=== PATIENT | male | born 2005 | race Caucasian/White ===

== ENCOUNTER 2023-11-28 06:11 | Emergency (ER) | payer SELFPAY ==
[2023-11-28] MEDS ORDERED: METOCLOPRAMIDE 10 MG/2mL INJ ONE (06:32)
[2023-11-28] MEDS ORDERED: ONDANSETRON 4 MG/2 ML VIAL ONE (06:32)
[2023-11-28] MEDS ORDERED: FAMOTIDINE 20 MG/2 ML VIAL IV ONE (06:33)
[2023-11-28] MEDS ORDERED: NA CHLORIDE 0.9% 1,000 ML ONE (06:33)
[2023-11-28 06:39] LABS: Absolute Basophils 0.1 K/uL (0-0.5); Absolute Eosinophils 0.1 K/uL (0-0.5); Absolute Lymphocytes (CBC) 2.4 K/uL (0.7-4.9); Absolute Monocytes 0.8 K/uL (0.1-1.3); Absolute Neutrophil 7.4 K/uL (1.8-8.0); Basophils % 0.9 % (0-1.3); Eosinophils % 0.5 % (0-4.4); Hematocrit 51.2 % (39.6-49.0); Hemoglobin 17.6 g/dL (13.6-17.9); Lymphocytes % 22.6 % (15.3-44.8); MCH 30.4 pg (27.0-35.0); MCHC 34.5 g/dL (32.0-36.0); MPV 9.4 fL (7.6-11.3); Monocytes % 7.2 % (3.3-12.3); Neutrophils % 68.8 % (41.7-73.7); Nucleated RBC Absolute Count 0.3 (0-0); Nucleated Red Blood Cells % 2.6 % (0-0); RBC Red Blood Cell Count 5.81 M/uL (4.33-5.43); Red Cell Distribution Width 13.6 % (12.1-15.2)
[2023-11-28 07:12] LABS: Albumin 4.2 g/dL (3.4-5.0); Albumin/Globulin Ratio 1.1 (1.1-1.8); Bilirubin Total 0.5 mg/dL (0.2-1.0); Protein, Total 8.2 g/dL (6.4-8.2)
[2023-11-28 07:44] LABS: Platelets 235 thou/uL (152-406)
--- NOTE | 2023-11-28 07:53 | RAD REPORT ---
EXAM DESCRIPTION: RAD - Chest Single View - 11/28/2023 7:42 am CLINICAL HISTORY: assess for pneumomediastinum COMPARISON: CHEST SINGLE VIEW dated 01/15/2014; CHEST PA AND LAT 2 VIEW dated 07/19/2012 FINDINGS: Lines: None. Lungs: No evidence of edema or pneumonia. Pleural: No significant pleural effusions or pneumothorax. Cardiac: The heart size is within normal limits. Mediastinum: Within normal limits. Bones: No acute fractures. Other: None IMPRESSION: No acute cardiopulmonary disease.
[2023-11-28 08:32] LABS: Blood Morphology Comment NOT SEEN (NOT SEEN); Platelet Estimate ADEQ; White Blood Cell Scan OK (OK)
--- NOTE | 2023-11-28 09:52 | ER ---
Nurse's Notes [facility] Name: Jaime Gates Age: 18 yrs Sex: Male : 2005 Arrival Date: 11/28/2023 Time: 06:11 Bed 16 Private MD: Diagnosis: Alcohol abuse with intoxication;Vomiting Presentation: 11/27 06:47 Chief complaint: Parent and/or Guardian states: drinking and vomiting blood. vc1 Coronavirus screen: At this time, the client does not indicate any symptoms associated with coronavirus-19. Ebola Screen: Patient negative for fever greater than or equal to 101.5 degrees Fahrenheit, and additional compatible Ebola Virus Disease symptoms Patient denies exposure to infectious person. Patient denies travel to an Ebola-affected area in the 21 days before illness onset. No symptoms or risks identified at this time. Initial Sepsis Screen: Does the patient meet any 2 criteria? No. Patient's initial sepsis screen is negative. Does the patient have a suspected source of infection? No. Patient's initial sepsis screen is negative. Risk Assessment: Do you want to hurt yourself or someone else? Patient reports no desire to harm self or others. Onset of symptoms was November 28, 2023. 06:47 Method Of Arrival: Ambulatory vc1 06:47 Acuity: EDELMIRA 4 vc1 07:44 Acuity: EDELMIRA 3 iw Triage Assessment: 06:49 General: Appears in no apparent distress. uncomfortable, Behavior is calm, cooperative, vc1 appropriate for age. Pain: Denies pain. Respiratory: Airway is patent Respiratory effort is even, unlabored, Respiratory pattern is regular, symmetrical, Breath sounds are clear bilaterally. GI: Abdomen is flat, non-distended, Reports nausea, vomiting. Historical: - Allergies: 06:47 No Known Allergies; vc1 - Home Meds: 06:47 None [Active]; vc1 - PMHx: 06:47 None; vc1 - PSHx: 06:47 None; vc1 - Immunization history:: Client reports having NOT received the Covid vaccine. - Infectious Disease History:: Denies. - Social history:: Smoking status: unknown. - Family history:: not pertinent. Screenin:48 [facility] ED Fall Risk Assessment (Adult) History of falling in the last 3 months, vc1 including since admission No falls in past 3 months (0 pts) Confusion or Disorientation No (0 pts) Intoxicated or Sedated No (0 pts) Impaired Gait No (0 pts) Mobility Assist Device Used No (0 pt) Altered Elimination No (0 pt) Score/Fall Risk Level 0 - 2 = Low Risk Oriented to surroundings, Maintained a safe environment, Educated pt \T\ family on fall prevention, incl call for assistance when getting out of bed. Abuse screen: Denies threats or abuse. Nutritional screening: No deficits noted. Tuberculosis screening: No symptoms or risk factors identified. Assessment: 07:35 General: Appears in no apparent distress. Behavior is calm, cooperative, drowsy. Pain: ph Denies pain. Neuro: Level of Consciousness is awake, alert, obeys commands, Oriented to person, place, time, situation. Respiratory: Airway is patent Respiratory effort is even, unlabored. Derm: Skin is pink, warm \T\ dry. 09:59 Reassessment: Patient appears in no apparent distress at this time. Patient and/or ph family updated on plan of care and expected duration. Pain level reassessed. Patient is alert, oriented x 3, equal unlabored respirations, skin warm/dry/pink. Vital Signs: 06:25 BP 129 / 66; Pulse 71; Resp 18; Temp 97.6; Pulse Ox 97% on R/A; Weight 97.52 kg; Height oe 5 ft. 10 in. ; 08:00 BP 115 / 62; Pulse 62; Resp 18; Pulse Ox 97% on R/A; ph 09:22 BP 108 / 55; Pulse 59; Resp 18; Pulse Ox 96% on R/A; ph 06:25 Body Mass Index 30.85 (97.52 kg, 177.8 cm) oe White Coma Score: 06:55 Eye Response: spontaneous(4). Motor Response: obeys commands(6). Verbal Response: sp4 oriented(5). Total: 15. ED Course: 06:14 Patient arrived in ED. [id number] 06:22 Nathan Vera MD is Attending Physician. sp4 06:45 Inserted saline lock: 20 gauge in right antecubital area, using aseptic technique. lg3 Blood collected. 06:47 Madison Hernandez RN is Primary Nurse. vc1 06:47 Triage completed. vc1 06:48 Arm band placed on right wrist. vc1 06:49 Patient has correct armband on for positive identification. Bed in low position. Call vc1 light in reach. Pulse ox on. NIBP on. 06:56 Attending Physician role handed off by Nathan Vera MD rt 06:56 Nitish Diop MD is Attending Physician. rt 07:44 Chest Single View XRAY In Process Unspecified. EDMS 07:57 Primary Nurse role handed off by Madison Hernandez RN ll1 08:32 Harleen Ornelas RN is Primary Nurse. ph 09:59 No provider procedures requiring assistance completed. IV discontinued, intact, ph bleeding controlled, No redness/swelling at site. Pressure dressing applied. Administered Medications: 06:39 Drug: Famotidine IVP 20 mg IVP once; dilute with 10 mL 0.9% NaCl; give over 2 minutes vc1 Route: IVP; Site: right antecubital; 07:54 Follow up: Response: No adverse reaction ph 06:39 Drug: metoCLOPramide IVP 10 mg IVP once; over 1 to 2 minutes Route: IVP; Site: right vc1 antecubital; 07:54 Follow up: Response: No adverse reaction ph 06:39 Drug: Ondansetron IVP 8 mg IVP once; over 2 minutes Route: IVP; Site: right antecubital;vc1 07:54 Follow up: Response: No adverse reaction ph 06:39 Drug: NS 0.9% IV 1000 ml IV at 1 bolus Per protocol; 1000 mL bolus Route: IV; Rate: 1 vc1 bolus; Site: right antecubital; 07:54 Follow up: Response: No adverse reaction; IV Status: Completed infusion; IV Intake: ph 1000ml Medication: 06:49 VIS not applicable for this client. vc1 Intake: 07:54 IV: 1000ml; Total: 1000ml. ph Outcome: 09:51 Discharge ordered by MD. rt 09:59 Discharged to home ambulatory, with family, ph 09:59 Condition: good 09:59 Discharge instructions given to patient, family, Instructed on discharge instructions, follow up and referral plans. Demonstrated understanding of instructions, follow-up care, 10:00 Patient left the ED. ph Signatures: Dispatcher [employer] EDOR Cyndie Mclaughlin RN RN Harleen Ornelas RN RN Juan Sheth Lacie, RN RN lg3 Sharron Mathias RN RN ll1 Susana Reyes jj6 Madison Hernandez RN RN vc1 Nitish Diop MD MD rt Nathan Vera MD MD sp4
--- NOTE | 2023-11-28 09:52 | EDPHYS ---
Physician Documentation [facility] Name: Jaime Gates Age: 18 yrs Sex: Male : 2005 Arrival Date: 11/28/2023 Time: 06:11 Bed 16 Private MD: ED Physician Nitish Diop HPI: 11/27 06:22 This 18 yrs old Male presents to ER via Unassigned with complaints of sp4 Intoxication, vomiting blood. 06:55 18-year-old male presents with acute vomiting after alcohol consumption last night. sp4 Patient states he has vomited some blood.. Historical: - Allergies: 06:47 No Known Allergies; vc1 - Home Meds: 06:47 None [Active]; vc1 - PMHx: 06:47 None; vc1 - PSHx: 06:47 None; vc1 - Immunization history:: Client reports having NOT received the Covid vaccine. - Infectious Disease History:: Denies. - Social history:: Smoking status: unknown. - Family history:: not pertinent. ROS: 06:55 Constitutional: Negative for fever, chills, and weight loss, positive vomiting positive sp4 alcohol intoxication 06:55 All other systems are negative, Exam: 06:55 Constitutional: This is a well developed, well nourished patient who is awake, alert, sp4 and in no acute distress. Head/Face: Normocephalic, atraumatic. Eyes: Pupils equal round and reactive to light, extra-ocular motions intact. Lids and lashes normal. Conjunctiva and sclera are not injected. Cornea within normal limits. Periorbital areas with no swelling, redness, or edema. ENT: Nares patent. No nasal discharge, no septal abnormalities noted. Tympanic membranes are normal and external auditory canals are clear. Oropharynx with no redness, swelling, or masses, exudates, or evidence of obstruction, uvula midline. Mucous membranes moist. Neck: Trachea midline, no thyromegaly or masses palpated, and no cervical lymphadenopathy. Supple, full range of motion without nuchal rigidity, or vertebral point tenderness. Chest/axilla: Normal chest wall appearance and motion. Nontender with no deformity. No lesions are appreciated. Cardiovascular: Regular rate and rhythm with a normal S1 and S2. No gallops, murmurs, or rubs. Normal PMI, no JVD. No pulse deficits. Respiratory: Lungs have equal breath sounds bilaterally, clear to auscultation and percussion. No rales, rhonchi or wheezes noted. No increased work of breathing, no retractions or nasal flaring. Abdomen/GI: Soft, with normal bowel sounds. No distension or tympany. No guarding or rebound. No evidence of tenderness throughout. Back: No spinal tenderness. No costovertebral tenderness. Skin: Warm, dry with normal turgor. Normal color with no rashes, no lesions, and no evidence of cellulitis. MS/ Extremity: Pulses equal, no cyanosis. Neurovascular intact. Full, normal range of motion. Neuro: Awake and alert, GCS 15, oriented to person, place, time, and situation. Cranial nerves II-XII grossly intact. Motor strength 5/5 in all extremities. Sensory grossly intact. Psych: Awake, alert, with orientation to person, place and time. Behavior, mood, and affect are within normal limits Vital Signs: 06:25 BP 129 / 66; Pulse 71; Resp 18; Temp 97.6; Pulse Ox 97% on R/A; Weight 97.52 kg; Height oe 5 ft. 10 in. ; 08:00 BP 115 / 62; Pulse 62; Resp 18; Pulse Ox 97% on R/A; ph 09:22 BP 108 / 55; Pulse 59; Resp 18; Pulse Ox 96% on R/A; ph 06:25 Body Mass Index 30.85 (97.52 kg, 177.8 cm) oe [place] Coma Score: 06:55 Eye Response: spontaneous(4). Motor Response: obeys commands(6). Verbal Response: sp4 oriented(5). Total: 15. MDM: 06:24 Patient medically screened. sp4 06:54 Differential Diagnosis altered mental status, sepsis, flu. Data reviewed: vital signs, sp4 nurses notes, old medical records, lab test result(s), radiologic studies. Transition of care: After a detail discussion of the patient's case, care is transferred to Nitish Diop MD. 10:06 ED course: I assumed care at shift change, patient with vomiting due to alcohol rt intoxication. No signs of significant GI bleed, suspect Calli-Daniels tear. Patient had significant proved of symptoms, is p.o. tolerant, ambulatory, stable for outpatient care, mother is comfortable with discharge.. 11/27 06:23 Order name: CBC with Diff; Complete Time: 08:54 sp4 11/27 06:23 Order name: CMP; Complete Time: 08:03 sp4 11/27 06:23 Order name: Lipase; Complete Time: 08:03 sp4 11/27 06:40 Order name: ETOH Level; Complete Time: 08:03 vc1 11/27 06:44 Order name: CBC Smear Scan; Complete Time: 08:54 EDMS 11/27 06:23 Order name: Chest Single View XRAY; Complete Time: 08:03 sp4 11/27 06:23 Order name: IV Saline Lock; Complete Time: 06:41 sp4 11/27 06:23 Order name: Labs collected and sent; Complete Time: 06:41 sp4 11/27 06:45 Order name: Labs - recollect needed: recollect chemistries/ hemolyzed; Complete Time: eb 07:40 11/27 09:35 Order name: Misc. Order: will dc once ambulatory and po tolerant; Complete Time: 09:59 rt Administered Medications: 06:39 Drug: Famotidine IVP 20 mg IVP once; dilute with 10 mL 0.9% NaCl; give over 2 minutes vc1 Route: IVP; Site: right antecubital; 07:54 Follow up: Response: No adverse reaction ph 06:39 Drug: metoCLOPramide IVP 10 mg IVP once; over 1 to 2 minutes Route: IVP; Site: right vc1 antecubital; 07:54 Follow up: Response: No adverse reaction ph 06:39 Drug: Ondansetron IVP 8 mg IVP once; over 2 minutes Route: IVP; Site: right antecubital;vc1 07:54 Follow up: Response: No adverse reaction ph 06:39 Drug: NS 0.9% IV 1000 ml IV at 1 bolus Per protocol; 1000 mL bolus Route: IV; Rate: 1 vc1 bolus; Site: right antecubital; 07:54 Follow up: Response: No adverse reaction; IV Status: Completed infusion; IV Intake: ph 1000ml Disposition Summary: 11/28/23 09:51 Discharge Ordered Notes: Location: Home rt Problem: new rt Symptoms: have improved rt Condition: Stable rt Diagnosis - Alcohol abuse with intoxication rt - Vomiting rt Followup: rt - With: Private Physician - When: 2 - 3 days - Reason: Discharge Instructions: - Discharge Summary Sheet rt - Alcohol Intoxication rt - Vomiting, Adult rt Forms: - Medication Reconciliation Form rt - Thank You Letter rt - Antibiotic Education rt - Prescription Opioid Use rt - Patient Portal Instructions rt - Leadership Thank You Letter rt Signatures: Dispatcher [employer] EDCammie Abernathy Vanessa, RN RN vc1 Nitish Diop MD MD rt Nathan Vera MD MD sp4 Harleen Ornelas RN ph Corrections: (The following items were deleted from the chart) 06:23 06:23 Chest Single View+[email or web address] ordered. EDME EDMS
[2023-11-28 10:04] VITALS: TEMP 97.6
[2023-11-28 10:44] VITALS: BP 108/55; O2SAT 96
== END 2023-11-28 10:00 | disposition home or self-care (01) ==
LOC: ER 06:11
DX: F10.129 Alcohol abuse with intoxication, unspecified (principal)
CPT/HCPCS: 36415; 71045; 80053; 82077; 83690; 85025; 96361; 96374; 96375; 99284; J2405; J2765; J7030

== ENCOUNTER 2024-05-11 05:22 | Emergency (ER) | payer SELFPAY ==
[2024-05-11] MEDS ORDERED: NA CHLORIDE 0.9% 2,000 ML ONE (06:16)
[2024-05-11 06:21] LABS: Absolute Basophils 0.1 K/uL (0-0.5); Absolute Eosinophils 0.3 K/uL (0-0.5); Absolute Lymphocytes (CBC) 1.5 K/uL (0.7-4.9); Absolute Monocytes 1.3 K/uL (0.1-1.3); Absolute Neutrophil 5.7 K/uL (1.8-8.0); Basophils % 0.6 % (0-1.3); Eosinophils % 3.3 % (0-4.4); Hematocrit 48.3 % (39.6-49.0); Hemoglobin 16.7 g/dL (13.6-17.9); MCH 30.5 pg (27.0-35.0); MCHC 34.6 g/dL (32.0-36.0); MCV 88.1 fL (80-100); Monocytes % 14.5 % (3.3-12.3); Neutrophils % 64.6 % (41.7-73.7); Nucleated Red Blood Cells % 0.1 % (0-0); Platelets 179 thou/uL (152-406); RBC Red Blood Cell Count 5.48 M/uL (4.33-5.43); Red Cell Distribution Width 13.4 % (12.1-15.2)
--- NOTE | 2024-05-11 06:23 | RAD REPORT ---
EXAM: XR Chest, 1 View CLINICAL HISTORY: The patient is 19 years old and is Male; Fever. TECHNIQUE: Single view of the chest. COMPARISON: No relevant prior studies available. FINDINGS: Lungs: Airspace opacification in the anterior right upper lobe consistent with pneumonia. Pleural space: Unremarkable. No pneumothorax. Heart: Unremarkable. No cardiomegaly. Mediastinum: Unremarkable. Bones/joints: No acute fracture. IMPRESSION: Airspace opacification in the anterior right upper lobe consistent with pneumonia. Electronically signed by: Shirin Verdugo MD 05/11/2024 06:17 AM CDT RP ND Due to temporary technical issues with the PACS/[employer] reporting system, reports are being valentin d by the in-house radiologist without review as a courtesy to ensure prompt reporting the interpreting radiologist is fully responsible for the content of the report. Transcribed Date/Time: 05/11/2024 6:22 AM
--- NOTE | 2024-05-11 06:35 | RAD REPORT ---
CT HEAD WITHOUT IV CONTRAST INDICATION: Syncope. COMPARISON: None TECHNIQUE: CT images of the head were obtained without contrast. Multiplanar reformats were provided. Dose lowering techniques such as automated exposure control, iterative reconstruction, and mA and/or kV adjustment for patient size was utilized for this examination. FINDINGS: PARENCHYMA: No acute arterial territory infarct. No acute intracranial hemorrhage. No mass effect or midline shift. VENTRICLES: Normal in size for patient's age. EXTRA-AXIAL: No focal collection. Patent basilar cisterns. ORBITS: Unremarkable. BONES: No acute finding. PARANASAL SINUSES/MASTOIDS/MIDDLE EARS: Clear. SOFT TISSUES: No acute findings. OTHER: None. IMPRESSION: No acute intracranial abnormality. Electronically signed by: My Zendejas MD 05/11/2024 06:28 AM CDT Due to temporary technical issues with the PACS/[employer] reporting system, reports are being valentin d by the in-house radiologist without review as a courtesy to ensure prompt reporting the interpreting radiologist is fully responsible for the content of the report. Transcribed Date/Time: 05/11/2024 6:35 AM
[2024-05-11 06:37] LABS: Albumin 3.5 g/dL (3.4-5.0); Albumin/Globulin Ratio 0.8 (1.1-1.8); Anion Gap 7.4 mEq/L (5.0-15.0); Bilirubin Direct 0.2 mg/dL (0-0.2); Bilirubin Indirect, Calculated 0.5 mg/dL (0.2-0.8); Bilirubin Total 0.7 mg/dL (0.2-1.0); Globulin 4.3 g/dL (2.3-3.5); Magnesium 1.8 mg/dL (1.6-2.4); Potassium 4.4 mEq/L (3.5-5.1); Protein, Total 7.8 g/dL (6.4-8.2); Troponin High Sensitivity 4.6 pg/mL (<58.9)
[2024-05-11] MEDS ORDERED: ACETAMINOPHEN 500 MG TAB ONE (06:47)
[2024-05-11 06:51] LABS: SARS-CoV-2 Antigen CONTROL BLUE LINE VIS/BG OK; SARS-CoV-2 Antigen Rapid Res Negative (Negative)
[2024-05-11 08:03] LABS: Specific Gravity 1.029 (1.005-1.030); Sqamous Epithelial None Seen /HPF (None Seen); Urine Bacteria None Seen /HPF (<20); Urine Bilirubin NEGATIVE (Negative); Urine Blood Trace (Negative); Urine Clarity Clear (Clear); Urine Color Yellow (Yellow); Urine Culture Reflex Order NOT NEEDED; Urine Glucose NEGATIVE (Negative); Urine Ketones NEGATIVE (Negative); Urine Micro Reflex YN NO BILL MICROSCOPIC; Urine Mucus Slight /HPF (None Seen); Urine Nitrite NEGATIVE (Negative); Urine Protein TRACE (Negative); Urine Urobilinogen Normal (Normal); Urine WBC <5 /HPF (<5); Urine pH 6.5 (5.0-7.0)
[2024-05-11] MEDS ORDERED: levoFLOXacin 250 MG TAB ONE (08:19)
--- NOTE | 2024-05-11 08:31 | EDPHYS ---
Physician Documentation [facility] Name: Jaime Gates Age: 19 yrs Sex: Male : 2005 Arrival Date: 05/11/2024 Time: 05:22 Bed 6 Private MD: ED Physician Gautam Langley HPI: 05/11 05:48 This 19 yrs old Male presents to ER via Wheelchair with complaints of Vomiting, Syncope.sp3 05:48 19-year-old male with a history of asthma presents with chief complaint syncope after sp3 vomiting off and on for the last 3 days. Patient states she has been having generalized bodyaches, fever and vomiting for 3 to 4 days and today while walking in the house he had a syncopal episode where he passed out onto the floor and then woke up within a few seconds. No additional symptoms reported. He denies headache, chest pain, shortness of breath, diarrhea, rash, known sick contacts, travel history, or any other signs or symptoms on ROS at this time.. Historical: - Allergies: 05:39 No Known Allergies; lg3 - Home Meds: 05:39 None [Active]; lg3 - PMHx: 05:39 Asthma; lg3 - PSHx: 05:39 None; lg3 - Immunization history:: Adult Immunizations up to date. - Infectious Disease History:: Denies. - Social history:: Smoking status: Reported history of juuling and/or vaping. Patient uses alcohol, occasionally. Patient/guardian denies using street drugs. ROS: 05:48 Eyes: Negative for injury, pain, redness, and discharge, ENT: Negative for injury, sp3 pain, and discharge, Neck: Negative for injury, pain, and swelling, Cardiovascular: Negative for chest pain, palpitations, and edema, Respiratory: Negative for shortness of breath, cough, wheezing, and pleuritic chest pain, Back: Negative for injury and pain, MS/Extremity: Negative for injury and deformity, Skin: Negative for injury, rash, and discoloration, Neuro: Negative for headache, weakness, numbness, tingling, and seizure, 05:48 All other systems are negative, Exam: 05:49 Constitutional: This is a well developed, well nourished patient who is awake, alert, sp3 and in no acute distress. Head/Face: Normocephalic, atraumatic. Eyes: Pupils equal round and reactive to light, extra-ocular motions intact. Lids and lashes normal. Conjunctiva and sclera are non-icteric and not injected. Cornea within normal limits. Periorbital areas with no swelling, redness, or edema. ENT: Nares patent. No nasal discharge, no septal abnormalities noted. External auditory canals are clear. Oropharynx with no redness, swelling, or masses, exudates, or evidence of obstruction, uvula midline. Mucous membranes moist. Neck: Trachea midline, no thyromegaly or masses palpated, and no cervical lymphadenopathy. Supple, full range of motion without nuchal rigidity, or vertebral point tenderness. No Meningismus. Chest/axilla: Normal chest wall appearance and motion. Nontender with no deformity. No lesions are appreciated. Respiratory: Lungs have equal breath sounds bilaterally, clear to auscultation and percussion. No rales, rhonchi or wheezes noted. No increased work of breathing, no retractions or nasal flaring. Abdomen/GI: Soft, non-tender, with normal bowel sounds. No distension or tympany. No guarding or rebound. No evidence of tenderness throughout. Back: No spinal tenderness. No costovertebral tenderness. Full range of motion. Skin: Warm, dry with normal turgor. Normal color with no rashes, no lesions, and no evidence of cellulitis. MS/ Extremity: Pulses equal, no cyanosis. Neurovascular intact. Full, normal range of motion. Neuro: Awake and alert, GCS 15, oriented to person, place, time, and situation. Cranial nerves II-XII grossly intact. Motor strength 5/5 in all extremities. Sensory grossly intact. Cerebellar exam normal. Normal gait. Psych: Awake, alert, with orientation to person, place and time. Behavior, mood, and affect are within normal limits. 05:49 Cardiovascular: Rate: tachycardic, 06:46 ECG was reviewed by the Attending Physician. EKG demonstrates normal sinus rhythm at 90 sp3 bpm with normal intervals, normal QRS, normal axis, normal ST/T segments without evidence of acute ischemia. Vital Signs: 05:36 BP 136 / 74; Pulse 111; Resp 19 S; Temp 102.6(O); Pulse Ox 97% on R/A; Weight 97.52 kg lg3 (R); Height 5 ft. 10 in. (R); 06:41 BP 100 / 54; Pulse 90; Resp 18; Pulse Ox 96% on R/A; kj2 06:48 Temp 101.6(O); kj2 08:23 BP 127 / 64; Pulse 81; Resp 17; Temp 98.6(O); Pulse Ox 97% on R/A; kj2 05:36 Body Mass Index 30.85 (97.52 kg, 177.8 cm) lg3 MDM: 05:32 Patient medically screened. sp3 05:49 Data reviewed: vital signs, nurses notes, lab test result(s), EKG, radiologic studies. sp3 ED course: 19-year-old male with vomiting, fever and syncope. Differential diagnosis is viral illness, gastroenteritis, gastritis, influenza, COVID-19, strep pharyngitis, pneumonia, other infection, abdominal pathology, among others. Will start workup with CT scan of the head, laboratory values, UA and general supportive care with p.o. antiemetics. Disposition pending workup and patient course. Sepsis labs also pending.. 06:47 ED course: Patient feeling slightly better. 500 mL of saline has been administered with sp3 1.5 L still pending. Lactate initially 2.1. Will recheck after fluids. Swab still pending otherwise serologies without significant findings. CT head negative.. 08:29 Differential diagnosis: viral gastroenteritis, gastroenteritis, Viral illness, rn pneumonia. Consideration of Admission/Observation Escalation of care including admission/observation considered. Escalation considered but given 2 L bolus, feels better, normal vitals, early pneumonia on chest x-ray with no chronic medical problems other than asthma. No oxygen requirement so joint decision made with patient to discharge home with p.o. antibiotics and return precautions. Independent interpretation of the following test(s) in the Emergency Department X-Ray: My interpretation is Chest x-ray images show possible pneumonia in right lung, negative for pneumothorax per my interpretation. Counseling: I had a detailed discussion with the patient and/or guardian regarding the historical points, exam findings, and any diagnostic results supporting the discharge/admit diagnosis, lab results, radiology results, the need for outpatient follow up, to return to the emergency department if symptoms worsen or persist or if there are any questions or concerns that arise at home. Special discussion: I discussed with the patient/guardian in detail that at this point there is no indication for admission to the hospital. It is understood, however, that if the symptoms persist or worsen the patient needs to return immediately for re-evaluation. 05/11 05:36 Order name: Strep sp3 05/11 05:36 Order name: Basic Metabolic Panel; Complete Time: 06:42 sp3 05/11 05:36 Order name: CBC with Diff; Complete Time: 06:42 sp3 05/11 05:36 Order name: Hepatic Function; Complete Time: 06:42 sp3 05/11 05:36 Order name: Magnesium; Complete Time: 06:42 sp3 05/11 05:36 Order name: Troponin High Sensitivity; Complete Time: 06:42 sp3 05/11 05:36 Order name: Lactate w/ 2H reflex if indic.; Complete Time: 06:42 sp3 05/11 05:36 Order name: Flu; Complete Time: 08:04 sp3 05/11 05:36 Order name: SARS RAPID; Complete Time: 08:04 sp3 05/11 05:36 Order name: UAM; Complete Time: 08:04 sp3 05/11 06:54 Order name: Throat Culture EDMS 05/11 08:41 Order name: Ghost Lactate-NO COLLECT Timer EDMS 05/11 05:36 Order name: CT Head Brain wo Cont sp3 05/11 05:36 Order name: CXR XRAY sp3 05/11 05:36 Order name: EKG; Complete Time: 05:36 sp3 05/11 05:36 Order name: Cardiac monitoring; Complete Time: 06:39 sp3 05/11 05:36 Order name: EKG - Nurse/Tech; Complete Time: 06:39 sp3 05/11 05:36 Order name: IV Saline Lock; Complete Time: 06:14 sp3 05/11 05:36 Order name: Labs collected and sent; Complete Time: 06:14 sp3 05/11 05:36 Order name: NPO; Complete Time: 06:43 sp3 05/11 05:36 Order name: O2 Per Protocol; Complete Time: 06:39 sp3 05/11 05:36 Order name: O2 Sat Monitoring; Complete Time: 06:39 sp3 Administered Medications: 06:39 Drug: NS 0.9% IV 2000 ml IV at 1 bolus Per protocol; 1000 mL bolus Route: IV; Rate: 1 kj2 bolus; Site: left antecubital; 08:40 Follow up: Response: No adverse reaction; IV Status: Completed infusion; IV Intake: rs5 2000ml 06:49 Drug: Acetaminophen PO 1000 mg PO once Route: PO; kj2 08:22 Drug: LevOfloxacin PO 500 mg PO once Route: PO; kj2 Disposition Summary: 05/11/24 08:30 Discharge Ordered Notes: Location: Home rn Problem: new rn Symptoms: have improved rn Condition: Stable rn Diagnosis - Pneumonia, unspecified organism rn Followup: rn - With: Private Physician - When: As needed - Reason: Recheck today's complaints, Re-evaluation by your physician Discharge Instructions: - Discharge Summary Sheet rn - Community-Acquired Pneumonia, Adult rn Forms: - Medication Reconciliation Form rn - Antibiotic loft patternmaker - Prescription Opioid Use rn - Patient Portal Instructions rn - Leadership Thank You Letter rn Prescriptions: - Albuterol Sulfate 2.5 mg /3 mL (0.083 %) Inhalation Solution for Nebulization - inhale 1 unit NEBULIZATION route every 8 hours As needed; 1 Pack; Refills: 0, rn Product Selection Permitted - levofloxacin 500 mg Oral tablet - take 1 tablet ORAL route once daily for 10 days; 10 tablet; Refills: 0, Product rn Selection Permitted Signatures: Dispatcher [employer] EDMS Gautam Langley MD MD rn Able, Lacie RN RN lg3 Peggy José MD MD sp3 Alia Go RN RN kj2 Casey Sanchez RN rs5 Corrections: (The following items were deleted from the chart) 05:36 05:36 BASIC METABOLIC PANEL+C.LAB.BRZ ordered. EDMS EDMS 05:36 05:36 CBC+H.LAB.BRZ ordered. EDMS EDMS 05:36 05:36 HEPATIC FUNCTION+C.LAB.BRZ ordered. EDMS EDMS 05:36 05:36 MAGNESIUM+C.LAB.BRZ ordered. EDMS EDMS 05:36 05:36 Troponin High Sensitivity+C.LAB.BRZ ordered. EDMS EDMS 05:36 05:36 LACTATE+C.LAB.BRZ ordered. EDMS EDMS 05:36 05:36 Influenza Screen (A \T\ B)+BA.LAB.BRZ ordered. EDMS EDMS 05:36 05:36 Group A Streptococcus Rapid Sc+BA.LAB.BRZ ordered. EDMS EDMS 05:36 05:36 SARS-COV-2 Antigen Rapid+I.LAB.BRZ ordered. EDMS EDMS 05:36 05:36 Urinalysis W/Microscopic+U.LAB.BRZ ordered. EDMS EDMS
--- NOTE | 2024-05-11 08:31 | ER ---
Nurse's Notes [facility] Name: Jaime Gates Age: 19 yrs Sex: Male : 2005 Arrival Date: 05/11/2024 Time: 05:22 Bed 6 Private MD: Diagnosis: Pneumonia, unspecified organism Presentation: 05/11 05:36 Chief complaint: Patient states: vomiting, body aches, fever, chills X4 days. syncopal lg3 episode. unknown loc. Coronavirus screen: Client denies travel out of the [place] in the last 14 days. Client presents with at least one sign or symptom that may indicate coronavirus-19. Standard/surgical mask placed on the client. Ebola Screen: No symptoms or risks identified at this time. Initial Sepsis Screen: Does the patient meet any 2 criteria? Temp <36.0*C (96.8*F)) or > 38.3*C (100.9*F). HR > 90 bpm. Yes Does the patient have a suspected source of infection? No. Patient's initial sepsis screen is negative. Risk Assessment: Do you want to hurt yourself or someone else? Patient reports no desire to harm self or others. Onset of symptoms was May 08, 2024. 05:36 Method Of Arrival: Wheelchair lg3 05:36 Acuity: EDELMIRA 3 lg3 Triage Assessment: 05:39 General: Appears in no apparent distress. uncomfortable, Behavior is calm, cooperative. lg3 Pain: Complains of pain in body aches. EENT: No deficits noted. Reports nasal congestion nasal discharge. Neuro: No deficits noted. Santos Agitation-Sedation Scale (RASS): 0 - Alert and Calm Level of Consciousness is awake, alert, obeys commands, Oriented to person, place, time, situation. Cardiovascular: No deficits noted. Denies chest pain, shortness of breath, Capillary refill < 3 seconds Clubbing of nail beds is absent JVD is absent Patient's skin is warm and dry. Respiratory: Reports cough that is dry, persistent pain with cough Airway is patent Respiratory effort is even, unlabored, Respiratory pattern is regular, symmetrical. GI: Abdomen is round non-distended, Reports lower abdominal pain, upper abdominal pain, cramping, intolerance of fluids, intolerance of food, nausea, vomiting. : No signs and/or symptoms were reported regarding the genitourinary system. Derm: Skin is intact, is healthy with good turgor, Skin is diaphoretic, Skin is normal, Skin temperature is warm. Musculoskeletal: No deficits noted. Circulation, motion, and sensation intact. Range of motion: intact in all extremities. Historical: - Allergies: 05:39 No Known Allergies; lg3 - Home Meds: 05:39 None [Active]; lg3 - PMHx: 05:39 Asthma; lg3 - PSHx: 05:39 None; lg3 - Immunization history:: Adult Immunizations up to date. - Infectious Disease History:: Denies. - Social history:: Smoking status: Reported history of juuling and/or vaping. Patient uses alcohol, occasionally. Patient/guardian denies using street drugs. Screenin:41 [facility] ED Fall Risk Assessment (Adult) History of falling in the last 3 months, lg3 including since admission Yes- single mechanical fall (1 pt) Confusion or Disorientation No (0 pts) Intoxicated or Sedated No (0 pts) Impaired Gait No (0 pts) Mobility Assist Device Used No (0 pt) Altered Elimination No (0 pt) Score/Fall Risk Level 0 - 2 = Low Risk Oriented to surroundings, Maintained a safe environment, Educated pt \T\ family on fall prevention, incl call for assistance when getting out of bed, Assessed \T\ reinforced patient's understanding of fall precautions, Provided non-skid footwear. Abuse screen: Denies threats or abuse. Denies injuries from another. Nutritional screening: No deficits noted. Tuberculosis screening: No symptoms or risk factors identified. Assessment: 05:41 General: see triage assessment. GI: Abdomen is round non-distended, Reports lower lg3 abdominal pain, upper abdominal pain, cramping, intolerance of fluids, intolerance of food, nausea, vomiting. 07:00 General: Appears in no apparent distress. comfortable, Behavior is calm, cooperative. kj2 Pain: Denies pain. Neuro: Level of Consciousness is awake, alert, obeys commands, Oriented to person, place, time, situation. Cardiovascular: Patient's skin is warm and dry. Respiratory: Reports cough that is Airway is patent Respiratory effort is even, unlabored, Respiratory pattern is regular, symmetrical. GI: Abdomen is round non-distended, Abd is soft and non tender X 4 quads. Patient currently denies nausea, pain. : No signs and/or symptoms were reported regarding the genitourinary system. EENT: No signs and/or symptoms were reported regarding the EENT system. Derm: Skin is intact, Skin is pink, warm \T\ dry. Musculoskeletal: Range of motion: intact in all extremities. 07:52 Reassessment: Patient and/or family updated on plan of care and expected duration. Pain kj2 level reassessed. Patient is alert, oriented x 3, equal unlabored respirations, skin warm/dry/pink. 08:40 Reassessment: Patient and/or family updated on plan of care and expected duration. Pain rs5 level reassessed. Patient is alert, oriented x 3, equal unlabored respirations, skin warm/dry/pink. Vital Signs: 05:36 BP 136 / 74; Pulse 111; Resp 19 S; Temp 102.6(O); Pulse Ox 97% on R/A; Weight 97.52 kg lg3 (R); Height 5 ft. 10 in. (R); 06:41 BP 100 / 54; Pulse 90; Resp 18; Pulse Ox 96% on R/A; kj2 06:48 Temp 101.6(O); kj2 08:23 BP 127 / 64; Pulse 81; Resp 17; Temp 98.6(O); Pulse Ox 97% on R/A; kj2 05:36 Body Mass Index 30.85 (97.52 kg, 177.8 cm) lg3 ED Course: 05:28 Patient arrived in ED. gm2 05:32 Peggy José MD is Attending Physician. sp3 05:39 Triage completed. lg3 05:39 Arm band placed on right wrist. lg3 05:41 Patient has correct armband on for positive identification. Placed in gown. Bed in low lg3 position. Call light in reach. Side rails up X 1. Client placed on continuous cardiac and pulse oximetry monitoring. NIBP monitoring applied. surveillance monitor on. Door closed. Noise minimized. Warm blanket given. Family accompanied patient. 05:57 Alia Go, RN is Primary Nurse. kj2 06:09 CXR XRAY In Process Unspecified. EDMS 06:14 Lactate w/ 2H reflex if indic. Sent. kj2 06:17 CT Head Brain wo Cont In Process Unspecified. EDMS 06:39 SARS RAPID Sent. kj2 06:39 Strep Sent. kj2 06:39 Flu Sent. kj2 06:39 No provider procedures requiring assistance completed. Inserted saline lock: 20 gauge kj2 in left antecubital area, using aseptic technique. Blood collected. Flushed with 10 mL NS. 06:51 IV discontinued, intact, bleeding controlled, No redness/swelling at site. Pressure lg3 dressing applied. 06:51 Inserted saline lock: 20 gauge in right antecubital area, using aseptic technique. lg3 07:11 Report given to PAT CHRISTIANSEN. kj2 07:38 Alia Go RN is Primary Nurse. kj2 08:04 Attending Physician role handed off by Peggy José MD rn 08:04 Gautam Langley MD is Attending Physician. rn 08:45 IV discontinued, intact, bleeding controlled, No redness/swelling at site. Pressure rs5 dressing applied. 08:47 Provided Education on: discharge instructions . rs5 Administered Medications: 06:39 Drug: NS 0.9% IV 2000 ml IV at 1 bolus Per protocol; 1000 mL bolus Route: IV; Rate: 1 kj2 bolus; Site: left antecubital; 08:40 Follow up: Response: No adverse reaction; IV Status: Completed infusion; IV Intake: rs5 2000ml 06:49 Drug: Acetaminophen PO 1000 mg PO once Route: PO; kj2 08:22 Drug: LevOfloxacin PO 500 mg PO once Route: PO; kj2 Medication: 05:41 VIS not applicable for this client. lg3 Intake: 08:40 IV: 2000ml; Total: 2000ml. rs5 Outcome: 08:30 Discharge ordered by . rn 08:45 Discharged to home ambulatory, rs5 08:45 Condition: stable rs5 08:45 Discharge instructions given to patient, family, Instructed on discharge instructions, follow up and referral plans. medication usage, Demonstrated understanding of instructions, follow-up care, medications, Prescriptions given X 2, 08:49 Patient left the ED. Signatures: Dispatcher [employer] EDMO Gautam Langley MD MD rn Blanchard, Shelby, RN RN ss Able, Lacie, RN RN lg3 Peggy José MD MD 3 Casey Sanchez RN RN rs5 Kim Brannon gm2 Alia Go RN RN kj2
[2024-05-11 21:52] VITALS: BP 127/64; TEMP 98.6; O2SAT 97
--- NOTE | 2024-05-12 16:38 | EKG ---
Test Date: 2024-05-11 Test Time: 06:37:11 Mending Carrier: BRITTNEY MEASUREMENT RESULTS: Intervals: Rate: 89 PA: 142 QRSD: 86 QT: 336 QTc: 408 [place]: P: 59 PA: 142 QRS: 64 T: 49 INTERPRETIVE STATEMENTS: Normal sinus rhythm Normal ECG No previous ECG available for comparison Electronically Signed On 05-12-24 16:33:39 CDT by Tank You
== END 2024-05-11 08:49 | disposition home or self-care (01) ==
LOC: ER 05:22
DX: J18.9 Pneumonia, unspecified organism (principal); Z11.52 Encounter for screening for COVID-19
CPT/HCPCS: 36415; 70450; 71045; 80048; 80076; 81001; 83605; 83735; 84484; 85025; 87070; 87081; 87804; 87811; 93005; 96360; 96361; 99285; J7030

== ENCOUNTER 2024-07-24 16:00 | Emergency (ER) | payer SELFPAY ==
[2024-07-24] MEDS ORDERED: HYDROCODONE/APAP 7.5/325 MG TAB ONE (17:50)
[2024-07-24] MEDS ORDERED: IBUPROFEN 400 MG TAB ONE (17:50)
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
--- NOTE | 2024-07-24 18:30 | RAD REPORT ---
EXAM: XR Hand Right 3 View HISTORY: [facility] MAIN Pain;Swelling Bed Name: [id number] COMPARISON: None TECHNIQUE: 3 radiographic views of the RIGHT hand submitted. FINDINGS: No evidence of acute fracture or dislocation. Joint alignment is maintained. No soft tissu e swelling is seen.. No significant degenerative changes are present. IMPRESSION: No significant bone or joint abnormality.
[2024-07-24 19:23] VITALS: TEMP 97.5
[2024-07-24 19:24] VITALS: BP 145/81; O2SAT 99
== END 2024-07-24 18:36 | disposition home or self-care (01) ==
LOC: ER 16:00
DX: S60.221A Contusion of right hand, initial encounter (principal)
CPT/HCPCS: 99283